=== PATIENT | female | born 1985 ===

== ENCOUNTER → 2018-02-26 17:58 | Outpatient (REF) | payer OTHER, SELFPAY | LOC: LAB 17:58 | PROVIDERS: Visit Provider Physician Assistant | DX: Z48.817 Encounter for surgical aftercare following surgery on the skin and subcutaneous tissue (principal) | CPT/HCPCS: 87186 ==

== ENCOUNTER → 2018-04-04 13:56 | Outpatient (REF) | payer OTHER, SELFPAY | LOC: LAB 13:56 | PROVIDERS: Visit Provider Physician Assistant | DX: Z48.817 Encounter for surgical aftercare following surgery on the skin and subcutaneous tissue (principal) | CPT/HCPCS: 87070; 87075; 87205 ==